=== PATIENT | female | born 1965 | race American Indian/Alaskan Native ===

== ENCOUNTER 2016-09-22 16:09 | Emergency (ER) | payer BC ==
[2016-09-22 16:21] VITALS: O2SAT 99
--- NOTE | 2016-09-22 16:35 | ED PDOC ---
Arrival/HPI - General Chief Complaint: Lower Extremity Problem/Injury Time Seen by Provider: 09/22/16 16:26 Historian: Patient - History of Present Illness Narrative History of Present Illness (Text): 09/22/16 16:32 51-year-old female presents today with left hip and left thigh and lower leg pain, and right thigh pain status post fall. Patient states about one hour prior to arrival the patient slipped and fell down approximately 7 stairs injuring the left leg. She denies hitting her head. She denies numbness weakness or tingling in the extremity. Patient states she is able to ambulate but has pain greatest in the left hip and thigh. She denies fevers or chills. Patient denies chest pain or shortness of breath. She denies neck pain. She denies loss of consciousness. She denies saddle paresthesias. Denies bladder or bowel incontinence. No medications have been taken for pain at home. 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 Time/Duration: Other (1hr prior to arrival) Symptom Onset: Sudden Symptom Course: Unchanged Quality: Aching Severity Level: 6 Past Medical History - Provider Review Nursing Documentation Reviewed: Yes - Travel History Have you recently traveled outside [place] w/in the past 3 mons?: No - Tetanus Immunization Tetanus Immunization: Unknown - Cardiac Hx Cardiac Disorders: No - Pulmonary Hx Respiratory Disorders: No - Neurological Hx Neurological Disorder: No - HEENT Hx HEENT Disorder: No - Renal Hx Renal Disorder: No - Endocrine/Metabolic Hx Endocrine Disorders: No - Hematological/Oncological Hx Blood Disorders: No - Integumentary Hx Dermatological Disorder: No - Musculoskeletal/Rheumatological Hx Back Pain: Yes - Gastrointestinal Hx Gastrointestinal Disorders: No - Genitourinary/Gynecological Hx Genitourinary Disorders: No - Psychiatric Hx Psychophysiologic Disorder: No Hx Substance Use: No Family/Social History - Physician Review Nursing Documentation Reviewed: Yes Family/Social History: Unknown Family HX Smoking Status: Never Smoked Hx Alcohol Use: No Hx Substance Use: No Allergies/Home Meds Allergies/Adverse Reactions: Allergies No Known Allergies Allergy (Verified 09/22/16 16:16) Review of Systems - Review of Systems Constitutional: absent: Fatigue, Fevers Respiratory: absent: SOB, Cough Cardiovascular: absent: Chest Pain, Palpitations Gastrointestinal: absent: Abdominal Pain, Diarrhea, Nausea, Vomiting Genitourinary Female: absent: Dysuria, Frequency, Hematuria, Urine Output Changes Musculoskeletal: Arthralgias (left hip, left femur/knee and tib fib pain). absent: Back Pain, Neck Pain Skin: absent: Rash, Pruritis Neurological: absent: Headache, Dizziness Psychiatric: absent: Anxiety Physical Exam Vital Signs Reviewed: Yes Vital Signs Temp Pulse Resp BP Pulse Ox 09/22/16 18:44 98.0 F 72 18 125/77 99 09/22/16 16:20 98.7 F 82 16 125/78 99 Temperature: Afebrile Blood Pressure: Normal Pulse: Regular Respiratory Rate: Normal Appearance: Positive for: Well-Appearing, Non-Toxic, Comfortable Pain Distress: None Mental Status: Positive for: Alert and Oriented X 3 - Systems Exam Head: Present: Atraumatic Mouth: Present: Moist Mucous Membranes Neck: Present: Normal Range of Motion Respiratory/Chest: Present: Clear to Auscultation, Good Air Exchange. No: Respiratory Distress, Accessory Muscle Use Cardiovascular: Present: Regular Rate and Rhythm, Normal S1, S2. No: Murmurs Abdomen: No: Tenderness Back: Present: Normal Inspection. No: Midline Tenderness, Paraspinal Tenderness , Pain with Leg Raise Upper Extremity: Present: Normal Inspection Lower Extremity: Present: NORMAL PULSES, Normal ROM, Tenderness (left hip; + ttp over anterior aspect of hip, + ttp over anterior femur and knee. + ttp over anterior tibia; no edema, no erythema; no ecchymosis. ambulates with painful gait. full rom of hip,knee, ankle. no ankle or foot tenderness or edema. ), Neurovascularly Intact, Capillary Refill < 2 s, Other (+ tenderness over right femur; no edema, no erythema; no ecchymosis; full rom of leg; ). No: CALF TENDERNESS, Swelling, Erythema, Deformity Neurological: Present: GCS=15, Speech Normal Skin: Present: Warm, Dry, Normal Color. No: Rashes Psychiatric: Present: Alert, Oriented x 3 Medical Decision Making ED Course and Treatment: 09/22/16 16:37 Patient nontoxic well-appearing in no distress with stable vital signs X-rays of the left knee: No fracture X-rays of the left hip: No fracture X-rays of the left femur: No fracture X-rays of the left tib-fib: No fracture xrays of the right femur; no fracture Toradol IM Patient given knee immobilizer. jovita wrap applied; Cane given for ambulation I discussed all results with patient advised to followup with the orthopedist for the next 2 days. Return if symptoms worsen persist or new symptoms develop i advised the patient that although the xrays show no fracture; there is still a possibility for ligamentous or tendon injury the patient must see the orthopedist for further evaluation. Patient verbalizes understanding of discharge instructions and need for immediate followup. Impression: knee pain, hip pain Motrin every 6 hours as needed for pain Rest, ice, compression, elevation Use cane for ambulation Followup with the orthopedist within the next 2 days Followup with primary care physician within the next 2 days Return if symptoms worsen persist or if new symptoms develop - RAD Interpretation Radiology Orders: 09/22/16 16:26 Hip Left [HIP MIN 2V W/ PELVIS LT] [RAD] Stat KNEE LEFT 2 VIEWS (AP & LAT) [RAD] Stat TIBIA FIBULA LEFT [RAD] Stat 09/22/16 16:27 FEMUR MIN 2 VIEWS RT [RAD] Stat 09/22/16 17:48 Femur Left [FEMUR MIN 2 VIEWS LT] [RAD] Stat - Medication Orders Current Medication Orders: Discontinued Medications Ketorolac Tromethamine (Toradol) 60 mg IM STAT STA Stop: 09/22/16 16:28 Last Admin: 09/22/16 17:27 Dose: 60 mg Re-Assess: PACO Pain Assessment Document 09/22/16 18:27 [facility] (Rec: 09/22/16 18:45 [id number] Pain Reassessment Is this a pain reassessment? Yes Sleep Is patient sleeping during reassessment? No Presence of Pain Presence of Pain No Disposition/Present on Arrival - Present on Arrival Any Indicators Present on Arrival: No History of DVT/PE: No History of Uncontrolled Diabetes: No Urinary Catheter: No History of Decub. Ulcer: No History Surgical Site Infection Following: None - Disposition Have Diagnosis and Disposition been Completed?: Yes Diagnosis: Knee pain, Hip pain, Leg pain Disposition: HOME/ ROUTINE Disposition Time: 17:48 Patient Plan: Discharge Condition: GOOD Discharge Instructions (ExitCare): Arthralgia (ED) Additional Instructions: Motrin every 6 hours as needed for pain Rest, ice, compression, elevation Use cane for ambulation Followup with the orthopedist within the next 2 days Followup with primary care physician within the next 2 days Return if symptoms worsen persist or if new symptoms develop Prescriptions: Ibuprofen [Motrin] 600 mg PO Q6H PRN #20 tab PRN Reason: pain/fever reduction Referrals: Jerrica Dodson MD [Primary Care Provider] - Follow up with primary Neftaly Clifford MD [Staff Provider] - Follow up with primary Forms: WORK NOTE
[2016-09-22 18:45] VITALS: BP 125/77; PULSE 72; RESP 18; TEMP 98
--- NOTE | 2016-09-23 07:19 | RAD ---
HISTORY: femur pain COMPARISON: No prior FINDINGS: BONES: Normal. No fracture. JOINTS: Normal. No osteoarthritis. SOFT TISSUE: Normal. OTHER FINDINGS: None . IMPRESSION: Normal Bone Xray.
--- NOTE | 2016-09-23 07:24 | RAD ---
HISTORY: fall COMPARISON: No prior FINDINGS: BONES: Normal. No fracture. JOINTS: Normal. No osteoarthritis. SOFT TISSUE: Normal. OTHER FINDINGS: None . IMPRESSION: Normal Bone Xray.
--- NOTE | 2016-09-23 07:41 | RAD ---
HISTORY: fall COMPARISON: No prior FINDINGS: BONES: Normal. No fracture. JOINTS: Normal. No osteoarthritis. SOFT TISSUE: Normal. OTHER FINDINGS: None . IMPRESSION: Normal Bone Xray.
--- NOTE | 2016-09-23 11:03 | RAD ---
HISTORY: hip pain COMPARISON: No prior FINDINGS: BONES: Normal. No fracture. JOINTS: Normal. No osteoarthritis. SOFT TISSUE: Normal. OTHER FINDINGS: None . IMPRESSION: Normal Bone Xray.
--- NOTE | 2016-09-23 11:03 | RAD ---
HISTORY: fall COMPARISON: No prior FINDINGS: BONES: Normal. No fracture. JOINTS: Normal. No osteoarthritis. SOFT TISSUE: Normal. OTHER FINDINGS: None . IMPRESSION: Normal Bone Xray.
== END 2016-09-22 18:45 | disposition home or self-care (01) ==
LOC: ED 16:09
DX: M25.562 Pain in left knee (principal); M25.552 Pain in left hip; M79.605 Pain in left leg
CPT/HCPCS: 73502; 73552; 73560; 73590; 96372; 99284; J1885

== ENCOUNTER 2017-02-23 17:18 | Emergency (ER) | payer OTHER ==
[2017-02-23 17:37] VITALS: BP 119/73; PULSE 86; RESP 18; TEMP 97.9; O2SAT 99
--- NOTE | 2017-02-23 18:06 | ED PDOC ---
Arrival/HPI - General Chief Complaint: Cough, Cold, Congestion Time Seen by Provider: 02/23/17 17:30 Historian: Patient - History of Present Illness Narrative History of Present Illness (Text): 02/23/17 18:03 51 yo female w/o significant Past medical history come in for evaluation of cold sx for past 2 days associated with nasal congestion, runny nose, productive cough with yellow sputum. Pt sts, last night was unable to sleep due to cough. Otherwise, pt denies high fever, chills, headache, dizziness, neck pain, drooling, dysphagia, CP, shortness of breath, dyspnea, diaphoresis, palpitation, abd. pain, N/V/D, back pain. Ambulate to Emergency department for evaluation, not in any apparent distress. Past Medical History - Provider Review Nursing Documentation Reviewed: Yes - Travel History Have you recently traveled outside [place] w/in the past 3 mons?: No - Past History Past History: Non-Contributing - Infectious Disease Hx of Infectious Diseases: None - Tetanus Immunization Tetanus Immunization: Unknown - Cardiac Hx Cardiac Disorders: No - Pulmonary Hx Respiratory Disorders: No - Neurological Hx Neurological Disorder: No - HEENT Hx HEENT Disorder: No - Renal Hx Renal Disorder: No - Endocrine/Metabolic Hx Endocrine Disorders: No - Hematological/Oncological Hx Blood Disorders: No - Integumentary Hx Dermatological Disorder: No - Musculoskeletal/Rheumatological Hx Back Pain: Yes - Gastrointestinal Hx Gastrointestinal Disorders: No - Genitourinary/Gynecological Hx Genitourinary Disorders: No - Psychiatric Hx Psychophysiologic Disorder: No Hx Substance Use: No Family/Social History - Physician Review Nursing Documentation Reviewed: Yes Family/Social History: No Known Family HX Smoking Status: Never Smoked Hx Alcohol Use: No Hx Substance Use: No Allergies/Home Meds Allergies/Adverse Reactions: Allergies No Known Allergies Allergy (Verified 02/23/17 17:37) Review of Systems - Review of Systems Constitutional: Normal Eyes: Normal ENT: Sore Throat, Rhinorrhea, Sinus Congestion Respiratory: Cough, Sputum. absent: SOB, Wheezing Cardiovascular: Normal. absent: Chest Pain, Palpitations, Edema, BELTRAN Gastrointestinal: Normal. absent: Abdominal Pain Genitourinary Female: Normal Musculoskeletal: Normal Skin: Normal Neurological: Normal Endocrine: Normal Hemo/Lymphatic: Normal Psychiatric: Normal Physical Exam Vital Signs Temp Pulse Resp BP Pulse Ox 02/23/17 17:35 97.9 F 86 18 119/73 99 Temperature: Afebrile Blood Pressure: Normal Pulse: Regular Respiratory Rate: Normal Appearance: Positive for: Well-Appearing, Non-Toxic, Comfortable Pain Distress: None Mental Status: Positive for: Alert and Oriented X 3 - Systems Exam Conjunctiva: Present: Normal Ears: Present: NORMAL TM, Normal Canal Mouth: Present: Moist Mucous Membranes, Normal Lips. No: Drooling, Trismus Pharnyx: Present: ERYTHEMA (mild B/L), Other (uvula midline, no edema.). No: EXUDATE, TONSILS ENLARGED Nose (Internal): Present: Edematous, Rhinorrhea (clear, scant) Neck: Present: Trachea Midline Respiratory/Chest: Present: Clear to Auscultation, Good Air Exchange. No: Respiratory Distress, Accessory Muscle Use Cardiovascular: Present: Regular Rate and Rhythm, Normal S1, S2. No: Murmurs Abdomen: Present: Normal Bowel Sounds. No: Tenderness, Distention, Peritoneal Signs, Rebound, Guarding Back: No: CVA Tenderness Upper Extremity: Present: Normal ROM. No: Deformity Lower Extremity: Present: Normal ROM. No: Edema, Swelling, Deformity Neurological: Present: GCS=15, Speech Normal Skin: Present: Warm, Dry, Normal Color. No: Rashes Psychiatric: Present: Alert, Oriented x 3, Normal Insight, Normal Concentration Medical Decision Making ED Course and Treatment: 02/23/17 18:01 On re-evaluation, pt is afebrile, hemodynamicaly stable. Non-toxic. PulsEOx 99% RA Neck: Supple, (-) JVD, (-) carotid bruits B/L Lungs:CTA B/L, BS equal B/L Abd: benign, (-) guarding, (-) rebound, (-) localized tenderness. back: (-) CVA tenderness. Pt ahs clinical findings c/w acute bronchitis sx. Pt advised. ref. to f/u with PMD in 2-3 days for re-eavl. return if any new changes. - Medication Orders Current Medication Orders: Benzonatate (Tessalon Perles) 100 mg PO STAT STA Stop: 02/23/17 18:02 Discontinued Medications Azithromycin (Zithromax) 500 mg PO STAT STA PRN Reason: Protocol Stop: 02/23/17 18:02 Prednisone (Prednisone Tab) 60 mg PO STAT ONE Stop: 02/23/17 18:02 Disposition/Present on Arrival - Present on Arrival Any Indicators Present on Arrival: No History of DVT/PE: No History of Uncontrolled Diabetes: No Urinary Catheter: No History of Decub. Ulcer: No History Surgical Site Infection Following: None - Disposition Have Diagnosis and Disposition been Completed?: Yes Diagnosis: Bronchitis Disposition: HOME/ ROUTINE Disposition Time: 18:07 Patient Plan: Discharge Condition: STABLE Discharge Instructions (ExitCare): Acute Bronchitis (ED) Additional Instructions: ENCOURAGE FLUIDS TAKE MEDICATION PRESCRIBED FOLLOW UP WITH PMD IN 2-3 DAYS FOR RE-EVALUATION. RETURN TO Emergency department IF ANY WORSENING OR NEW CHANGES. Prescriptions: Azithromycin [Zithromax] 250 mg PO DAILY #4 tab Benzonatate [Tessalon Perle] 100 mg PO TID #14 capsule Prednisone [Deltasone] 20 mg PO DAILY #3 tablet Referrals: [facility] [place] - Follow up with primary
== END 2017-02-23 18:38 | disposition home or self-care (01) ==
LOC: ED 17:18
DX: J20.9 Acute bronchitis, unspecified (principal)